=== PATIENT | male | born 1960 | race Caucasian/White ===

== ENCOUNTER 2017-01-16 19:43 | Emergency (ER) | payer OTHER ==
[2014-12-05 09:45] VITALS: BMI 34.7
== END 2017-01-16 20:27 | disposition home or self-care (01) ==
LOC: D.ER 19:43
DX: J01.90 Acute sinusitis, unspecified (principal)

== ENCOUNTER 2018-12-04 16:20 | Emergency (ER) | payer OTHER ==
[~2018-12-04] VITALS: Ht 188 cm; Wt 90.9 kg
[2018-12-04 16:34] VITALS: Ht 188 cm; Wt 90.9 kg
[2018-12-04 17:19] LABS: BASOPHILS 0.4 % (0-2); HEMATOCRIT 46.9 % (42.0-54.0); HEMOGLOBIN 15.9 g/dL (13.5-17.5); IMMATURE GRANULOCYTES 0.2 % (0-5); LYMPHOCYTES 21.1 % (15-50); MCHC 33.9 g/dL (31.0-37.0); MCV 88.5 fL (80.0-100.0); MEAN PLATELET VOLUME 11.7 fL (7.4-10.4); MONOCYTES 9.8 % (2-11); NEUTROPHILS 67.5 % (40-80); RDW 13.9 % (11.5-14.5); WBC 11.1 10x3/uL (4.8-10.8)
[2018-12-04 17:31] LABS: PLATELET COUNT 254 10x3/uL (130-400)
[2018-12-04 17:36] LABS: ALBUMIN 4.2 g/dL (3.4-5.0); ANION GAP 12.1 mmol/L (8-16); BILIRUBIN - TOTAL 0.26 mg/dL (0.2-1.3); CALCIUM 9.1 mg/dL (8.5-10.1); CARBON DIOXIDE 27.9 mmol/L (21.0-32.0); CREATININE - SERUM 1.2 mg/dL (0.6-1.3); PROTEIN - SERUM 7.7 g/dL (6.4-8.2)
[2018-12-04] MEDS ORDERED: FLOMAX0.4 MG PO (20:17)
[2018-12-04] MEDS ORDERED: PERCOCET 5-3251 TAB PO (20:17)
[2018-12-04 21:10] LABS: APPEARANCE CLEAR (CLEAR); BACTERIA FEW /hpf (NONE SEEN); BILIRUBIN NEGATIVE (NEGATIVE); COLOR YELLOW (YELLOW); GLUCOSE NEGATIVE (NEGATIVE); KETONE NEGATIVE (NEGATIVE); NITRITE NEGATIVE (NEGATIVE); PROTEIN NEGATIVE (NEGATIVE); SPECIFIC GRAVITY 1.025 (1.005-1.020); UROBILINOGEN NORMAL (NORMAL); WHITE CELLS - URINE 0-5 /hpf (0-5)
[2018-12-04 21:35] VITALS: BP 148/98
== END 2018-12-04 21:35 | disposition home or self-care (01) ==
LOC: D.ER 16:20
PROVIDERS: Family Medicine
DX: N20.1 Calculus of ureter (principal)